=== PATIENT | male | born 1975 | race Caucasian/White ===

== ENCOUNTER 2017-10-15 07:14 | Emergency (ER) | payer MEDICARE, MEDICAID ==
[~2017-10-15] VITALS: Ht 175.3 cm; Wt 75.0 kg
[~2017-10-15 07:14] MED LIST: ACET-71; CLOB15CR11; CLON-527 PO; CLON-528 PO; DIPH-915 PO; LAMO200T2 PO; PARO25TA16 PO; QUET-1 PO; [UNRECOGNIZED DRUG - CODE] PO
[2017-10-15] MEDS ORDERED: LORazepam 2 mg/ml vial IV ONE (07:25)
[2017-10-15] MEDS ORDERED: normal saline 1000ML IV soln IVB ONE ×2 (07:25→08:50)
[2017-10-15 08:30] LABS: BASOPHILS % (AUTO) 0.2 % (0-1); EOSINOPHILS # (AUTO) 0.1 X10'3 (0-0.9); EOSINOPHILS % (AUTO) 1.3 % (0-6); HEMATOCRIT 39.8 % (42.0-52.0); HEMOGLOBIN 13.8 g/dl (14.0-17.9); LYMPHOCYTES # (AUTO) 0.8 X10'3 (1.1-4.8); LYMPHOCYTES % (AUTO) 9.9 % (21-51); MEAN CORPUSCULAR HEMOGLOBIN 33.6 PG (27.0-31.0); MEAN CORPUSCULAR HGB CONC 34.8 % (33.0-36.5); MEAN CORPUSCULAR VOLUME 96.6 FL (78-98); MEAN PLATELET VOLUME 8.1 FL (7.4-10.4); MONOCYTES # (AUTO) 0.4 X10'3 (0-0.9); MONOCYTES % (AUTO) 5.5 % (2-12); NEUTROPHILS # (AUTO) 6.4 X10'3 (1.8-7.7); NEUTROPHILS % (AUTO) 83.1 % (42-75); PLATELET COUNT 160 X10'3 (140-440); RED BLOOD COUNT 4.12 X10'6 (4.70-6.10); RED CELL DISTRIBUTION WIDTH 13.6 % (11.5-14.5); WHITE BLOOD COUNT 7.7 X10'3 (4.5-11.0)
[2017-10-15] MEDS ORDERED: lamoTRIgine 100mg tablet PO ONE ×3 (08:40→12:10)
[2017-10-15 08:41] LABS: ALANINE AMINOTRANSFERASE 20 U/L (12-78); ALBUMIN 3.8 G/DL (3.4-5.0); ALBUMIN/GLOBULIN RATIO 1.2 (1.1-1.5); ALKALINE PHOSPHATASE 77 IU/L (46-116); ANION GAP 9 (8-16); ASPARTATE AMINO TRANSFERASE 25 U/L (10-37); BILIRUBIN,TOTAL 0.3 MG/DL (0.1-1.0); BLOOD UREA NITROGEN 19 MG/DL (7-18); CALCIUM 8.9 MG/DL (8.5-10.1); CHLORIDE 101 MMOL/L (99-107); CREATININE 1.46 MG/DL (0.60-1.10); GLUCOSE 104 MG/DL (70-104); MAGNESIUM 2.3 MG/DL (1.5-2.4); SODIUM 141 MMOL/L (135-145); TOTAL CARBON DIOXIDE 31.1 MMOL/L (24-32); TOTAL PROTEIN 7.1 G/DL (6.4-8.2); eGFR 53 ML/MIN
[2017-10-15 09:45] LABS: PROTHROMBIN TIME 10.4 SECONDS (9.0-12.0)
[2017-10-15 10:09] LABS: PARTIAL THROMBOPLASTIN TIME 25 SECONDS (22-32)
[2017-10-15 11:18] VITALS: BP 98/56
== END 2017-10-15 12:38 | disposition home or self-care (01) ==
LOC: ER 07:15
DX: R56.9 Unspecified convulsions (principal); E86.0 Dehydration; Z88.8 Allergy status to other drugs, medicaments and biological substances
CPT/HCPCS: 36415; 71045; 74176; 80053; 82948; 83605; 83735; 85025; 85610; 85730; 87040; 96361; 96374; 99285; J2060; J7030

== ENCOUNTER 2017-11-26 13:45 | Emergency (ER) | payer MEDICARE, MEDICAID ==
[~2017-11-26] VITALS: Ht 188 cm; Wt 81.8 kg
[~2017-11-26 13:45] MED LIST changes: +RISP0.5T50 PO; -[UNRECOGNIZED DRUG - CODE] PO
[2017-11-26] MEDS ORDERED: lamoTRIgine 100mg tablet PO ONE (14:15)
[2017-11-26] MEDS ORDERED: LORazepam 1 MG tablet PO ONE (14:20)
[2017-11-26 16:37] VITALS: BP 116/86
== END 2017-11-26 16:39 | disposition home or self-care (01) ==
LOC: ER 13:48
DX: G40.909 Epilepsy, unspecified, not intractable, without status epilepticus (principal); Z88.8 Allergy status to other drugs, medicaments and biological substances; Z79.899 Other long term (current) drug therapy
CPT/HCPCS: 99283

== ENCOUNTER 2018-02-20 18:22 | Inpatient (IN) | payer MEDICARE, MEDICAID ==
[~2018-02-20] VITALS: Ht 180.3 cm; Wt 100.0 kg
[~2018-02-20 18:22] MED LIST changes: -CLOB15CR11; +CLOB15CR11 TOP; +etomidate 2mg/ml inj. ONE; +rocuronium 10mg/ml inj IV ONE
[2018-02-20] MEDS ORDERED: rocuronium 10mg/ml inj IV ONE (18:40)
[2018-02-20] MEDS ORDERED: etomidate 2mg/ml inj. IV ONE (18:40)
[2018-02-20] MEDS ORDERED: normal saline 1000ML IV soln IVB ONE (18:40)
[2018-02-20] MEDS ORDERED: MIDAZolam 5mg/ml 2ml vial IV ONE ×2 (18:40→19:45)
[2018-02-20] MEDS ORDERED: fentaNYL/PF 50MCG/1 ML 2ML syringe IV ONE (18:40)
[2018-02-20] MEDS ORDERED: propofol 1000mg/100ml bottle 100 ML IV ONE (18:40)
[2018-02-20] MEDS ORDERED: midazolam 100mg in NS 100ml 100 ML IV PRN (18:50)
[2018-02-20 19:00] LABS: BASOPHILS % (AUTO) 0 % (0-1); EOSINOPHILS % (AUTO) 0 % (0-6); HEMATOCRIT 41.6 % (42.0-52.0); HEMOGLOBIN 14.3 g/dl (14.0-17.9); LYMPHOCYTES # (AUTO) 0.6 X10'3 (1.1-4.8); LYMPHOCYTES % (AUTO) 6.8 % (21-51); MEAN CORPUSCULAR HEMOGLOBIN 32.9 PG (27.0-31.0); MEAN CORPUSCULAR HGB CONC 34.4 % (33.0-36.5); MEAN CORPUSCULAR VOLUME 95.5 FL (78-98); MEAN PLATELET VOLUME 8.5 FL (7.4-10.4); MONOCYTES # (AUTO) 0.3 X10'3 (0-0.9); MONOCYTES % (AUTO) 4.1 % (2-12); NEUTROPHILS # (AUTO) 7.2 X10'3 (1.8-7.7); NEUTROPHILS % (AUTO) 89.1 % (42-75); PLATELET COUNT 156 X10'3 (140-440); RED BLOOD COUNT 4.35 X10'6 (4.70-6.10); WHITE BLOOD COUNT 8.1 X10'3 (4.5-11.0)
[2018-02-20 19:04] LABS: ALANINE AMINOTRANSFERASE 19 U/L (12-78); ALBUMIN/GLOBULIN RATIO 1.1 (1.1-1.5); ALKALINE PHOSPHATASE 88 IU/L (46-116); ANION GAP 22 (8-16); ASPARTATE AMINO TRANSFERASE 26 U/L (10-37); BILIRUBIN,TOTAL 0.1 MG/DL (0.1-1.0); BLOOD UREA NITROGEN 16 MG/DL (7-18); BUN/CREATININE RATIO 8.7 (5.4-32.0); CALCIUM 8.9 MG/DL (8.5-10.1); CHLORIDE 102 MMOL/L (99-107); CREATININE 1.83 MG/DL (0.60-1.10); GLUCOSE 96 MG/DL (70-104); POTASSIUM 4.3 MMOL/L (3.5-5.1); SODIUM 143 MMOL/L (135-145); TOTAL CARBON DIOXIDE 19.1 MMOL/L (24-32); TOTAL PROTEIN 7.7 G/DL (6.4-8.2); eGFR 41 ML/MIN
[2018-02-20 19:14] LABS: CKMB RELATIVE INDEX 0.7 RATIO (0-2.5); CREATINE KINASE 200 U/L (39-308)
[2018-02-20 19:45] LABS: CLARITY,URINE CLEAR (Clear); COLOR,URINE YELLOW (Yellow); GLUCOSE, URINE NEGATIVE (Neg); KETONES,URINE NEGATIVE (Neg); LEUKOCYTE ESTERASE ,URINE NEGATIVE (Neg); NITRITES, URINE NEGATIVE (Neg); OCCULT BLOOD,URINE SMALL (Neg); PH,URINE 5.5 (4.8-8.0); PROTEIN,URINE TRACE mg/dl (Neg); UROBILINOGEN,URINE 0.2 E.U/dL (0.2-1.0)
[2018-02-20 19:50] LABS: UA COLLECTION TYPE FOLEY CATH
[2018-02-20 19:51] LABS: BACTERIA,URINE FEW /HPF (Neg); RBC,URINE 0-2 /HPF (0-2); SQUAMOUS EPITHELIAL CELL,UR FEW /LPF (FEW); WBC,URINE NONE SEEN /HPF (0-4)
[2018-02-20] MEDS ORDERED: LACO100T2 PO (19:55)
[2018-02-20] MEDS ORDERED: LAMO25TA94 PO (19:55)
[2018-02-20] MEDS ORDERED: ACET-2119 PO (19:55)
[2018-02-20] MEDS ORDERED: DOCU250C86 PO (19:55)
[2018-02-20] MEDS ORDERED: OLAN10TA3 PO (19:55)
[2018-02-20] MEDS ORDERED: OLAN10TA19 PO (19:55)
[2018-02-20] MEDS ORDERED: MAGN400O6 PO (19:55)
[2018-02-20] MEDS ORDERED: LORA10TA7 PO (19:55)
[2018-02-20] MEDS ORDERED: POLY17PO10 PO (19:55)
[2018-02-20] MEDS ORDERED: TRAZ-143 PO (19:55)
[2018-02-20] MEDS ORDERED: LURA40TA3 PO (19:55)
[2018-02-20 20:01] LABS: ABG BASE EXCESS 1.9 mmol/L (-2.0-3.0); ABG PH (T) 7.406 (7.350-7.450); ABG PO2 (T) 202.6 mmHg (83-108); ALLEN'S TEST Positive; FCOHb 0.2 % (0.5-1.5); FMetHb 0.3 % (0.3-1.12); FO2Hb 98.5 % (94-100); MINUTE VOLUME 7 L/min; PATIENT TEMPERATURE 37.2; PEEP 5 cm H2O; RESPIRATORY RATE 16 b/min; RESPIRATORY RATE (OBSERVED) 16 b/min; TIDAL VOLUME 400 mL; TOTAL HEMOGLOBIN 14.5 G/dl (14.0-18.0)
[2018-02-20] MEDS ORDERED: potassium Cl 40MEQ/250ML bag 250 ML IV PRN ×2 (20:20)
[2018-02-20] MEDS ORDERED: acetaminophen 325mg tablet PO PRN (20:20)
[2018-02-20] MEDS ORDERED: K, MAG and/or Phos replacement - Verify level? MC PRN (20:20)
[2018-02-20] MEDS ORDERED: magnesium hydroxide 30ml (MOM) UD suspension PO PRN (20:20)
[2018-02-20] MEDS ORDERED: ondansetron/PF 4mg/2ml inj IV PRN (20:20)
[2018-02-20] MEDS ORDERED: magnesium 4gm in 100ml NS 100 ML IV PRN (20:20)
[2018-02-20] MEDS ORDERED: magnesium 1gm/100ml D5W IVPB 50 ML IV PRN (20:20)
[2018-02-20] MEDS ORDERED: morphine 4 MG/ML inj SYRINge IV PRN ×2 (20:20)
[2018-02-20] MEDS ORDERED: FENTANYL-0.9 % NACL/PF 100 ML IV PRN (20:31)
[2018-02-20 21:30] VITALS: BP 116/65
[2018-02-20 22:00] VITALS: BP 112/62
[2018-02-20 23:00] VITALS: BP 111/72
[2018-02-21] VITALS (24 sets, daily range): BP systolic 81–132; BP diastolic 55–81
[2018-02-21] MEDS: midazolam 100mg in NS 100ml 100 ML IV PRN ×4 (00:56→21:38)
[2018-02-21 03:36] LABS: ABG BASE EXCESS 5.8 mmol/L (-2.0-3.0); ABG HCO3 30.4 mmol/L (22.0-26.0); ABG OXYGEN SATURATION 98.7 % (95-98); ABG PCO2 (T) 44.9 mmHg (35.0-48.0); ABG PO2 (T) 141.3 mmHg (83-108); ALLEN'S TEST Positive; FCOHb 0.3 % (0.5-1.5); FMetHb 0.3 % (0.3-1.12); FO2Hb 98.1 % (94-100); MINUTE VOLUME 9 L/min; PATIENT TEMPERATURE 37.3; PEEP 5 cm H2O; RESPIRATORY RATE 16 b/min; RESPIRATORY RATE (OBSERVED) 16 b/min; TIDAL VOLUME 400 mL; TOTAL HEMOGLOBIN 14.3 G/dl (14.0-18.0)
[2018-02-21 05:14] LABS: BASOPHILS % (AUTO) 0.3 % (0-1); EOSINOPHILS # (AUTO) 0.1 X10'3 (0-0.9); HEMATOCRIT 39.4 % (42.0-52.0); HEMOGLOBIN 13.5 g/dl (14.0-17.9); LYMPHOCYTES # (AUTO) 1.2 X10'3 (1.1-4.8); MEAN CORPUSCULAR HEMOGLOBIN 32.8 PG (27.0-31.0); MEAN CORPUSCULAR HGB CONC 34.3 % (33.0-36.5); MEAN CORPUSCULAR VOLUME 95.7 FL (78-98); MEAN PLATELET VOLUME 8.2 FL (7.4-10.4); MONOCYTES # (AUTO) 0.7 X10'3 (0-0.9); MONOCYTES % (AUTO) 10.1 % (2-12); NEUTROPHILS # (AUTO) 5.1 X10'3 (1.8-7.7); NEUTROPHILS % (AUTO) 71.6 % (42-75); PLATELET COUNT 128 X10'3 (140-440); RED BLOOD COUNT 4.12 X10'6 (4.70-6.10); RED CELL DISTRIBUTION WIDTH 12.9 % (11.5-14.5); WHITE BLOOD COUNT 7.2 X10'3 (4.5-11.0)
[2018-02-21 06:04] LABS: ALBUMIN 3.8 G/DL (3.4-5.0); ANION GAP 7 (8-16); BLOOD UREA NITROGEN 15 MG/DL (7-18); BUN/CREATININE RATIO 9.8 (5.4-32.0); CALCIUM 9.2 MG/DL (8.5-10.1); CHLORIDE 106 MMOL/L (99-107); CREATININE 1.53 MG/DL (0.60-1.10); GLUCOSE 87 MG/DL (70-104); MAGNESIUM 2.4 MG/DL (1.5-2.4); POTASSIUM 3.3 MMOL/L (3.5-5.1); SODIUM 145 MMOL/L (135-145); TOTAL CARBON DIOXIDE 31.6 MMOL/L (24-32); eGFR 50 ML/MIN
[2018-02-21] MEDS: famotidine/PF 10 mg/ml inj IV SCH ×2 (08:16→20:27)
[2018-02-21] MEDS: heparin, porcine 5000 units/ml vial SQ SCH ×2 (08:18→20:28)
[2018-02-21] MEDS: acetaminophen 325mg tablet PO PRN (08:28)
[2018-02-21] MEDS ORDERED: potassium Cl oral solution 20 MEQ/15 ML PO PRN ×2 (09:35)
[2018-02-21] MEDS: sodium chloride 0.45% 1,000 ML IV SCH ×2 (09:46→17:09)
[2018-02-21 10:59] LABS: CLARITY,URINE CLOUDY (Clear); COLOR,URINE YELLOW (Yellow); GLUCOSE, URINE NEGATIVE (Neg); KETONES,URINE NEGATIVE (Neg); LEUKOCYTE ESTERASE ,URINE TRACE (Neg); NITRITES, URINE NEGATIVE (Neg); OCCULT BLOOD,URINE LARGE (Neg); PROTEIN,URINE TRACE mg/dl (Neg); UROBILINOGEN,URINE 0.2 E.U/dL (0.2-1.0)
[2018-02-21 11:10] LABS: UA COLLECTION TYPE FOLEY CATH
[2018-02-21 11:13] LABS: BACTERIA,URINE FEW /HPF (Neg); HYALINE CASTS 0-3 /LPF (NEGATIVE); MUCUS STRANDS NONE SEEN /LPF (Neg); SQUAMOUS EPITHELIAL CELL,UR FEW /LPF (FEW); URIC ACID CRYSTALS 4+ /HPF (NEGATIVE); WBC,URINE 0-4 /HPF (0-4)
[2018-02-21 11:14] LABS: RBC,URINE 20-50 /HPF (0-2)
[2018-02-21] MEDS ORDERED: LORazepam 2 mg/ml vial IV PRN (12:05)
[2018-02-21] MEDS: clonazePAM 1mg tablet PO SCH ×2 (17:02→20:35)
[2018-02-21] MEDS: clobetasol 0.05% cream 30gm TP SCH (17:09)
[2018-02-21] MEDS: lurasidone 20mg tablet PO SCH (17:09)
[2018-02-21] MEDS: LACOSAMIDE 150 MG PO SCH (20:00)
[2018-02-21] MEDS: lamoTRIgine 100mg tablet PO SCH (20:27)
[2018-02-21] MEDS: traZODone 50mg tablet PO SCH (20:35)
[2018-02-22] VITALS (13 sets, daily range): BP systolic 85–134; BP diastolic 46–72
[2018-02-22] MEDS: sodium chloride 0.45% 1,000 ML IV SCH ×3 (00:42→17:39)
[2018-02-22] MEDS: mineral oil/petrolatum ophthal oint EACHEYE SCH ×2 (02:03→08:35)
[2018-02-22 04:04] LABS: BASOPHILS % (AUTO) 0.4 % (0-1); EOSINOPHILS % (AUTO) 0.3 % (0-6); HEMATOCRIT 38.9 % (42.0-52.0); HEMOGLOBIN 13.5 g/dl (14.0-17.9); LYMPHOCYTES % (AUTO) 9.5 % (21-51); MEAN CORPUSCULAR HEMOGLOBIN 33.2 PG (27.0-31.0); MEAN CORPUSCULAR HGB CONC 34.7 % (33.0-36.5); MEAN CORPUSCULAR VOLUME 95.5 FL (78-98); MEAN PLATELET VOLUME 8.4 FL (7.4-10.4); MONOCYTES # (AUTO) 0.7 X10'3 (0-0.9); MONOCYTES % (AUTO) 6.6 % (2-12); NEUTROPHILS # (AUTO) 8.8 X10'3 (1.8-7.7); NEUTROPHILS % (AUTO) 83.2 % (42-75); PLATELET COUNT 103 X10'3 (140-440); RED BLOOD COUNT 4.07 X10'6 (4.70-6.10); RED CELL DISTRIBUTION WIDTH 13.1 % (11.5-14.5); WHITE BLOOD COUNT 10.6 X10'3 (4.5-11.0)
[2018-02-22 04:17] LABS: ALBUMIN 3.4 G/DL (3.4-5.0); ANION GAP 7 (8-16); BLOOD UREA NITROGEN 15 MG/DL (7-18); BUN/CREATININE RATIO 10.2 (5.4-32.0); CALCIUM 8.9 MG/DL (8.5-10.1); CHLORIDE 106 MMOL/L (99-107); CREATININE 1.47 MG/DL (0.60-1.10); GLUCOSE 86 MG/DL (70-104); MAGNESIUM 2.1 MG/DL (1.5-2.4); PHOSPHORUS 2.8 MG/DL (2.3-4.5); POTASSIUM 3.8 MMOL/L (3.5-5.1); SODIUM 143 MMOL/L (135-145); TOTAL CARBON DIOXIDE 30.4 MMOL/L (24-32); eGFR 52 ML/MIN
[2018-02-22 05:06] LABS: ABG BASE EXCESS 2.1 mmol/L (-2.0-3.0); ABG HCO3 26.7 mmol/L (22.0-26.0); ABG OXYGEN SATURATION 92.8 % (95-98); ABG PCO2 (T) 43.1 mmHg (35.0-48.0); ABG PH (T) 7.414 (7.350-7.450); ABG PO2 (T) 68.7 mmHg (83-108); ALLEN'S TEST Positive; FCOHb 0.4 % (0.5-1.5); FMetHb 0.4 % (0.3-1.12); FO2Hb 92.1 % (94-100); MINUTE VOLUME 8 L/min; PATIENT TEMPERATURE 37.7; PEEP 5 cm H2O; RESPIRATORY RATE 16 b/min; RESPIRATORY RATE (OBSERVED) 16 b/min; TIDAL VOLUME 400 mL; TOTAL HEMOGLOBIN 13.5 G/dl (14.0-18.0)
[2018-02-22] MEDS: midazolam 100mg in NS 100ml 100 ML IV PRN (05:06)
[2018-02-22] MEDS: LACOSAMIDE 150 MG PO SCH ×2 (06:30→20:00)
[2018-02-22] MEDS: famotidine/PF 10 mg/ml inj IV SCH ×2 (06:32→20:49)
[2018-02-22] MEDS: heparin, porcine 5000 units/ml vial SQ SCH ×2 (06:32→20:00)
[2018-02-22] MEDS: lamoTRIgine 100mg tablet PO SCH ×2 (06:35→20:50)
[2018-02-22] MEDS: clonazePAM 1mg tablet PO SCH ×3 (06:36→20:51)
[2018-02-22] MEDS: lamoTRIgine 25mg tablet PO SCH (06:36)
[2018-02-22] MEDS: olanzapine 10mg tablet PO SCH ×2 (08:00→13:14)
[2018-02-22] MEDS: loratadine 10mg tablet PO SCH (08:34)
[2018-02-22] MEDS: PARoxetine 20mg tablet PO SCH (08:34)
[2018-02-22] MEDS: lurasidone 20mg tablet PO SCH ×2 (08:34→17:38)
[2018-02-22] MEDS: polyethylene glycol 3350 17gm powd pack PO SCH (08:34)
[2018-02-22] MEDS: acetaminophen 325mg tablet PO PRN (13:14)
[2018-02-22] MEDS: traZODone 50mg tablet PO SCH (20:52)
[2018-02-23 03:00] VITALS: BP 93/52
[2018-02-23] MEDS: sodium chloride 0.45% 1,000 ML IV SCH ×2 (03:30→09:30)
[2018-02-23 06:03] LABS: BASOPHILS % (AUTO) 0.2 % (0-1); EOSINOPHILS # (AUTO) 0.1 X10'3 (0-0.9); EOSINOPHILS % (AUTO) 1.2 % (0-6); HEMOGLOBIN 12.8 g/dl (14.0-17.9); LYMPHOCYTES # (AUTO) 1.3 X10'3 (1.1-4.8); LYMPHOCYTES % (AUTO) 16.6 % (21-51); MEAN CORPUSCULAR HEMOGLOBIN 32.8 PG (27.0-31.0); MEAN CORPUSCULAR HGB CONC 34.6 % (33.0-36.5); MEAN CORPUSCULAR VOLUME 94.8 FL (78-98); MEAN PLATELET VOLUME 8.2 FL (7.4-10.4); MONOCYTES # (AUTO) 0.6 X10'3 (0-0.9); MONOCYTES % (AUTO) 8.1 % (2-12); NEUTROPHILS # (AUTO) 5.8 X10'3 (1.8-7.7); NEUTROPHILS % (AUTO) 73.9 % (42-75); PLATELET COUNT 106 X10'3 (140-440); WHITE BLOOD COUNT 7.9 X10'3 (4.5-11.0)
[2018-02-23 06:17] LABS: ALBUMIN 2.8 G/DL (3.4-5.0); ANION GAP 7 (8-16); BLOOD UREA NITROGEN 12 MG/DL (7-18); BUN/CREATININE RATIO 9.4 (5.4-32.0); CALCIUM 8.3 MG/DL (8.5-10.1); CHLORIDE 104 MMOL/L (99-107); CREATININE 1.27 MG/DL (0.60-1.10); GLUCOSE 89 MG/DL (70-104); MAGNESIUM 1.8 MG/DL (1.5-2.4); PHOSPHORUS 2.6 MG/DL (2.3-4.5); POTASSIUM 3.7 MMOL/L (3.5-5.1); SODIUM 141 MMOL/L (135-145); TOTAL CARBON DIOXIDE 30.3 MMOL/L (24-32); eGFR 62 ML/MIN
[2018-02-23 06:45] VITALS: BP 100/76
[2018-02-23] MEDS: heparin, porcine 5000 units/ml vial SQ SCH ×2 (08:00→19:35)
[2018-02-23] MEDS: polyethylene glycol 3350 17gm powd pack PO SCH (08:00)
[2018-02-23] MEDS: LACOSAMIDE 150 MG PO SCH ×2 (08:00→19:34)
[2018-02-23] MEDS: famotidine/PF 10 mg/ml inj IV SCH (08:06)
[2018-02-23] MEDS: lamoTRIgine 25mg tablet PO SCH (08:09)
[2018-02-23] MEDS: lamoTRIgine 100mg tablet PO SCH ×2 (08:09→19:33)
[2018-02-23] MEDS: loratadine 10mg tablet PO SCH (08:09)
[2018-02-23] MEDS: clonazePAM 1mg tablet PO SCH ×3 (08:09→19:33)
[2018-02-23] MEDS: lurasidone 20mg tablet PO SCH ×2 (08:09→16:48)
[2018-02-23] MEDS: PARoxetine 20mg tablet PO SCH (08:09)
[2018-02-23] MEDS: olanzapine 10mg tablet PO SCH ×2 (08:09→12:29)
[2018-02-23 11:00] VITALS: BP 110/51
[2018-02-23] MEDS: levoFLOXACIN-Levaquin 750MG/D5 150 ML IV SCH (11:29)
[2018-02-23] MEDS: metroNIDAZOLE-Flagyl 500mg/NS 100 ML IV SCH ×3 (11:29→23:32)
[2018-02-23 15:00] VITALS: BP 160/96
[2018-02-23 19:00] VITALS: BP 147/76
[2018-02-23] MEDS: famotidine 20mg tablet PO SCH (19:33)
[2018-02-23] MEDS: clotrimazole topical cream 15gm tube TP SCH (19:33)
[2018-02-23] MEDS: traZODone 50mg tablet PO SCH (19:33)
[2018-02-23 23:00] VITALS: BP 99/58
[2018-02-24 03:00] VITALS: BP 94/47
[2018-02-24 05:50] LABS: ANION GAP 3 (8-16); BLOOD UREA NITROGEN 12 MG/DL (7-18); CHLORIDE 105 MMOL/L (99-107); CREATININE 1.33 MG/DL (0.60-1.10); GLUCOSE 98 MG/DL (70-104); POTASSIUM 3.8 MMOL/L (3.5-5.1); SODIUM 141 MMOL/L (135-145); TOTAL CARBON DIOXIDE 32.8 MMOL/L (24-32); eGFR 59 ML/MIN
[2018-02-24 06:37] VITALS: BP 91/47
[2018-02-24] MEDS: levoFLOXACIN-Levaquin 750MG/D5 150 ML IV SCH (07:55)
[2018-02-24] MEDS: metroNIDAZOLE-Flagyl 500mg/NS 100 ML IV SCH (07:55)
[2018-02-24] MEDS: polyethylene glycol 3350 17gm powd pack PO SCH (07:56)
[2018-02-24] MEDS: famotidine 20mg tablet PO SCH (07:56)
[2018-02-24] MEDS: lurasidone 20mg tablet PO SCH (07:56)
[2018-02-24] MEDS: clotrimazole topical cream 15gm tube TP SCH (07:57)
[2018-02-24] MEDS: clonazePAM 1mg tablet PO SCH (07:57)
[2018-02-24] MEDS: PARoxetine 20mg tablet PO SCH (07:57)
[2018-02-24] MEDS: lamoTRIgine 100mg tablet PO SCH (07:57)
[2018-02-24] MEDS: loratadine 10mg tablet PO SCH (07:57)
[2018-02-24] MEDS: olanzapine 10mg tablet PO SCH (07:57)
[2018-02-24] MEDS: lamoTRIgine 25mg tablet PO SCH (07:57)
[2018-02-24] MEDS: heparin, porcine 5000 units/ml vial SQ SCH (08:00)
[2018-02-24] MEDS: clobetasol 0.05% cream 30gm TP SCH (08:00)
[2018-02-24] MEDS: LACOSAMIDE 150 MG PO SCH (08:00)
[2018-02-24] MEDS ORDERED: Potassium Cl inj 20 MEQ in sodium chloride 0.45% 990 ML IV SCH (09:30)
[2018-02-24] MEDS ORDERED: METR500T4 PO (09:51)
[2018-02-24] MEDS ORDERED: LEVO750T21 PO (09:51)
[2018-02-24] MEDS ORDERED: CLOT30CR TP (09:56)
== END 2018-02-24 11:54 | disposition home or self-care (01) | DRG 208 ==
LOC: ER 18:22 → ED HOLD 20:17 → CICU 2S 21:36 → PCU 3S 02-22 17:57
PROVIDERS: ADMIT Internal Medicine Critical Care Medicine; ATTEND Internal Medicine
PROC: 5A1945Z Respiratory Ventilation, 24-96 Consecutive Hours (ICD-10-PCS; principal; 2018-02-20)
PROC: 0BH17EZ Insertion of Endotracheal Airway into Trachea, Via Natural or Artificial Opening (ICD-10-PCS; 2018-02-20)
PROC: 02HV33Z Insertion of Infusion Device into Superior Vena Cava, Percutaneous Approach (ICD-10-PCS; 2018-02-20)
PROC: B548ZZA Ultrasonography of Superior Vena Cava, Guidance (ICD-10-PCS; 2018-02-20)
DX: J69.0 Pneumonitis due to inhalation of food and vomit (principal); J96.90 Respiratory failure, unspecified, unspecified whether with hypoxia or hypercapnia; F84.0 Autistic disorder; N17.9 Acute kidney failure, unspecified; G40.901 Epilepsy, unspecified, not intractable, with status epilepticus; G80.9 Cerebral palsy, unspecified; L40.9 Psoriasis, unspecified; F42.9 Obsessive-compulsive disorder, unspecified; B36.0 Pityriasis versicolor; E86.0 Dehydration; F41.9 Anxiety disorder, unspecified; Z88.8 Allergy status to other drugs, medicaments and biological substances; Z79.899 Other long term (current) drug therapy
CPT/HCPCS: 36415; 36556; 36600; 70450; 71045; 80048; 80053; 81001; 82542; 82550; 82553; 82803; 82948; 83735; 84100; 84132; 85018; 85025; 87040; 87070; 87077; 87088; 87186; 92616; 93005; 94002; 94003; 94760; 96374; 96375; 97110; 97161; 99291; A4353; A4620; A6213; A6449; C1751; C1758; J1644; J1956; J2250; J3010; J3480; J3490; J7030

== ENCOUNTER → 2018-05-21 | Emergency (ER) | payer MEDICARE, MEDICAID ==
[~2018-05-21] VITALS: Ht 190.5 cm; Wt 77.0 kg
[~2018-05-21] MED LIST changes: +ACET-2119 PO; -ACET-71; -CLON-528 PO; +CLOT30CR TP; -DIPH-915 PO; +DOCU250C86 PO; +LACO100T2 PO; +LAMO25TA94 PO; +LORA10TA7 PO; +LURA40TA3 PO; +POLY17PO10 PO; -QUET-1 PO; -RISP0.5T50 PO; +TRAZ-218 PO; -etomidate 2mg/ml inj. ONE; -rocuronium 10mg/ml inj IV ONE
[2018-05-21 11:07] VITALS: BP 120/70
== END | disposition home or self-care (01) ==
LOC: ER 08:28
DX: G40.909 Epilepsy, unspecified, not intractable, without status epilepticus (principal); Z86.69 Personal history of other diseases of the nervous system and sense organs; Z79.899 Other long term (current) drug therapy; Z88.8 Allergy status to other drugs, medicaments and biological substances
CPT/HCPCS: 99284

== ENCOUNTER 2018-11-15 11:15 | Emergency (ER) | payer MEDICARE, MEDICAID ==
[~2018-11-15] VITALS: Ht 185.4 cm; Wt 68.0 kg
--- NOTE | 2018-11-15 11:45 | NUR ---
Flo albright in [facility], [place] - 11/15/18 at 1227 by MIRANDA ATTEMPTED TO CALL REPORT TO [facility] ON PC[facility]. NURSE NOT AVAILABLE AT THIS TIME AND WILL CALL BACK IN 10 MINUTES.
[2018-11-15] MEDS ORDERED: LIDOcaine 1% w/epiNEPHrine 1:200,000 30ml vial IM ONE (11:55)
[2018-11-15] MEDS ORDERED: TETanus/Pertussis (Acell)/Diphther VAC/PF (Tdap-Adult) 0.5ml syringe IM ONE (11:55)
[2018-11-15 12:22] VITALS: BP 125/82
--- NOTE | 2018-11-15 12:24 | NUR ---
Flo albright in [facility] - 11/15/18 at 1227 by MIRANDA PATIENT LEFT FOR IR PER HOSPITAL BED, IN STABLE CONDITION.
== END 2018-11-15 12:27 | disposition home or self-care (01) ==
LOC: ER 11:15
DX: S01.81XA Laceration without foreign body of other part of head, initial encounter (principal); G80.8 Other cerebral palsy; Z88.8 Allergy status to other drugs, medicaments and biological substances; Z79.899 Other long term (current) drug therapy; W22.8XXA Striking against or struck by other objects, initial encounter; Y93.01 Activity, walking, marching and hiking; Y92.89 Other specified places as the place of occurrence of the external cause; Y99.8 Other external cause status
CPT/HCPCS: 12011; 90471; 90715; 99284

== ENCOUNTER 2019-09-25 20:33 | Emergency (ER) | payer MEDICARE, MEDICAID ==
[~2019-09-25] VITALS: Ht 190.5 cm; Wt 66.0 kg
[~2019-09-25 20:33] MED LIST changes: -TRAZ-218 PO; +TRAZ-251 PO
--- NOTE | 2019-09-25 21:01 | NUR ---
CONTACTED POISON CONTROL...UNLIKELY TO HAVE ANAPHYLACTIC REACTION, OBSERVE FOR 6 HOURS FROM TIME OF INGESTION FOR LOW BP, SOB, OBTAIN BASELINE LFTS
--- NOTE | 2019-09-25 21:25 | NUR ---
Dr Scales made aware of patient's blood pressure of 81/30. Received verbal order for 1L of NS IV.
[2019-09-25] MEDS: normal saline 1000ml 1,000 ML IV SCH ×3 (21:41→23:27)
[2019-09-25 22:36] LABS: BASOPHILS # (AUTO) 0.1 X10'3 (0-0.2); BASOPHILS % (AUTO) 1.5 % (0-1); EOSINOPHILS # (AUTO) 0.2 X10'3 (0-0.9); EOSINOPHILS % (AUTO) 4.2 % (0-6); HEMATOCRIT 34.7 % (42.0-52.0); HEMOGLOBIN 12.1 g/dl (14.0-17.9); LYMPHOCYTES # (AUTO) 1.6 X10'3 (1.1-4.8); LYMPHOCYTES % (AUTO) 34.8 % (21-51); MEAN CORPUSCULAR HEMOGLOBIN 33.5 PG (27.0-31.0); MEAN CORPUSCULAR HGB CONC 34.8 g/dL (33.0-36.5); MEAN CORPUSCULAR VOLUME 96.5 FL (78-98); MEAN PLATELET VOLUME 8.1 FL (7.4-10.4); MONOCYTES # (AUTO) 0.4 X10'3 (0-0.9); MONOCYTES % (AUTO) 9.4 % (2-12); NEUTROPHILS # (AUTO) 2.3 X10'3 (1.8-7.7); NEUTROPHILS % (AUTO) 50.1 % (42-75); PLATELET COUNT 163 X10'3 (140-440); RED BLOOD COUNT 3.59 X10'6 (4.70-6.10); RED CELL DISTRIBUTION WIDTH 13.4 % (11.5-14.5); WHITE BLOOD COUNT 4.6 X10'3 (4.5-11.0)
[2019-09-25 22:47] LABS: ALANINE AMINOTRANSFERASE 27 U/L (12-78); ALBUMIN 3.3 G/DL (3.4-5.0); ALBUMIN/GLOBULIN RATIO 1.1 (1.1-1.5); ALKALINE PHOSPHATASE 89 IU/L (46-116); ANION GAP 3 (8-16); ASPARTATE AMINO TRANSFERASE 28 U/L (10-37); BILIRUBIN,TOTAL 0.2 MG/DL (0.1-1.0); BLOOD UREA NITROGEN 20 MG/DL (7-18); BUN/CREATININE RATIO 21.1 (5.4-32.0); CALCIUM 9.1 MG/DL (8.5-10.1); CHLORIDE 105 MMOL/L (99-107); CREATININE 0.95 MG/DL (0.60-1.10); GLUCOSE 93 MG/DL (70-104); POTASSIUM 4.1 MMOL/L (3.5-5.1); SODIUM 143 MMOL/L (135-145); TOTAL CARBON DIOXIDE 34.8 MMOL/L (24-32); TOTAL PROTEIN 6.4 G/DL (6.4-8.2); eGFR 86 ML/MIN
[2019-09-25 22:56] LABS: ETHANOL < 0.010 GM/DL (0.0-0.010)
[2019-09-26 00:14] LABS: URINE AMPHETAMINE SCREEN NEGATIVE (Neg); URINE BARBITUATE SCREEN NEGATIVE (Neg); URINE BENZODIAZEPINES SCREEN NEGATIVE (Neg); URINE CANNABINOID SCREEN NEGATIVE (Neg); URINE COCAINE SCREEN NEGATIVE (Neg); URINE METHADONE SCREEN NEGATIVE (Neg); URINE OPIATE SCREEN NEGATIVE (Neg); URINE PHENCYCLIDINE SCREEN NEGATIVE (Neg)
[2019-09-26] MEDS: normal saline 1000ml 1,000 ML IV SCH ×3 (00:33→02:23)
[2019-09-26 02:24] VITALS: BP 90/47
== END 2019-09-26 03:07 | disposition home or self-care (01) ==
LOC: ER 20:33
DX: T43.591A Poisoning by other antipsychotics and neuroleptics, accidental (unintentional), initial encounter (principal); T42.1X1A Poisoning by iminostilbenes, accidental (unintentional), initial encounter; T37.0X1A Poisoning by sulfonamides, accidental (unintentional), initial encounter; I95.9 Hypotension, unspecified; F17.200 Nicotine dependence, unspecified, uncomplicated; F41.9 Anxiety disorder, unspecified; Z88.8 Allergy status to other drugs, medicaments and biological substances; Z79.899 Other long term (current) drug therapy; Y92.89 Other specified places as the place of occurrence of the external cause
CPT/HCPCS: 36415; 80053; 80305; 80320; 84443; 85025; 96360; 96361; 99283; J7030

== ENCOUNTER 2020-02-12 10:11 | Emergency (ER) | payer MEDICARE, MEDICAID ==
[~2020-02-12] VITALS: Ht 188 cm; Wt 66.0 kg
[~2020-02-12 10:11] MED LIST changes: -CLOT30CR TP; +CLOT30CR19 TP; +DOCU250C31 PO; -DOCU250C86 PO
[2020-02-12 10:16] VITALS: BP 86/60
[2020-02-12] MEDS ORDERED: TETanus/Pertussis (Acell)/Diphther VAC/PF (Tdap-Adult) 0.5ml syringe IMVAC ONE (10:35)
== END 2020-02-12 12:19 | disposition home or self-care (01) ==
LOC: ER 10:12
DX: S51.012A Laceration without foreign body of left elbow, initial encounter (principal); F41.9 Anxiety disorder, unspecified; Z86.69 Personal history of other diseases of the nervous system and sense organs; Z88.8 Allergy status to other drugs, medicaments and biological substances; Z79.899 Other long term (current) drug therapy; W01.0XXA Fall on same level from slipping, tripping and stumbling without subsequent striking against object, initial encounter; Y93.89 Activity, other specified; Y92.89 Other specified places as the place of occurrence of the external cause; Y99.8 Other external cause status
CPT/HCPCS: 73080; 90471; 90715; 99283

== ENCOUNTER 2020-02-15 21:24 | Emergency (ER) | payer MEDICARE, MEDICAID ==
[~2020-02-15] VITALS: Ht 190.5 cm; Wt 80.9 kg
[2020-02-15] MEDS ORDERED: CefTRIAXone 1000mg IM Kit (w/lidocaine diluent) IM ONE (22:25)
[2020-02-15] MEDS ORDERED: CEPH-572 PO (22:27)
[2020-02-15 22:48] VITALS: BP 134/68
== END 2020-02-15 22:52 | disposition home or self-care (01) ==
LOC: ER 21:25
DX: L03.114 Cellulitis of left upper limb (principal); F41.9 Anxiety disorder, unspecified; Z86.69 Personal history of other diseases of the nervous system and sense organs; Z88.8 Allergy status to other drugs, medicaments and biological substances; Z79.899 Other long term (current) drug therapy
CPT/HCPCS: 96372; 99283; J0696

== ENCOUNTER 2020-02-18 11:38 | Emergency (ER) | payer MEDICARE, MEDICAID ==
[~2020-02-18] VITALS: Ht 190.5 cm; Wt 65.0 kg
[~2020-02-18 11:38] MED LIST changes: +CEPH-572 PO
[2020-02-18 11:48] VITALS: BP 102/63
[2020-02-18] MEDS ORDERED: BACDS PO (13:44)
--- NOTE | 2020-02-18 13:45 | NUR ---
pt seen, treated, and dc'd by sherrie brown. no orders. family at bedside to assist pt.
== END 2020-02-18 13:51 | disposition home or self-care (01) ==
LOC: ER 11:39
DX: L03.114 Cellulitis of left upper limb (principal); F41.9 Anxiety disorder, unspecified; R50.9 Fever, unspecified; Z86.69 Personal history of other diseases of the nervous system and sense organs; Z88.8 Allergy status to other drugs, medicaments and biological substances; Z79.899 Other long term (current) drug therapy
CPT/HCPCS: 99283

== ENCOUNTER 2020-02-21 09:53 | Outpatient (CLI) | payer MEDICARE, MEDICAID ==
[~2020-02-21 09:53] MED LIST changes: +BACDS PO
== END 2020-02-21 11:05 | disposition home or self-care (01) ==
LOC: WOUND CARE 09:53
PROVIDERS: ATTEND Nurse Practitioner Family
DX: S50.312A Abrasion of left elbow, initial encounter (principal); L98.491 Non-pressure chronic ulcer of skin of other sites limited to breakdown of skin; L40.9 Psoriasis, unspecified; R56.9 Unspecified convulsions; F41.9 Anxiety disorder, unspecified; F32.9 Major depressive disorder, single episode, unspecified; Z79.899 Other long term (current) drug therapy; Z86.69 Personal history of other diseases of the nervous system and sense organs; X58.XXXA Exposure to other specified factors, initial encounter; Y93.89 Activity, other specified; Y92.89 Other specified places as the place of occurrence of the external cause; Y99.8 Other external cause status
CPT/HCPCS: G0463

== ENCOUNTER 2020-02-28 11:00 | Outpatient (CLI) | payer MEDICARE, MEDICAID | END 2020-02-28 11:12 | disposition home or self-care (01) | LOC: EDSTATUS 11:00 → WOUND CARE 11:00 | PROVIDERS: ATTEND Nurse Practitioner Family | DX: S50.312D Abrasion of left elbow, subsequent encounter (principal); L98.491 Non-pressure chronic ulcer of skin of other sites limited to breakdown of skin; L40.9 Psoriasis, unspecified; R56.9 Unspecified convulsions; F41.9 Anxiety disorder, unspecified; F32.9 Major depressive disorder, single episode, unspecified; Z79.899 Other long term (current) drug therapy; Z86.69 Personal history of other diseases of the nervous system and sense organs; X58.XXXD Exposure to other specified factors, subsequent encounter | CPT/HCPCS: G0463 ==

== ENCOUNTER 2022-10-25 13:56 | Inpatient (IN) | payer MEDICARE, MEDICAID ==
[~2022-10-25] VITALS: Ht 182.9 cm; Wt 72.3 kg
[~2022-10-25 13:56] MED LIST changes: -BACDS PO; +DOCU-361 PO; -DOCU250C31 PO; +LURA40TA2 PO; -LURA40TA3 PO; -PARO25TA16 PO; +PARO25TA22 PO
[2022-10-25 14:35] LABS: BASOPHILS % (AUTO) 0.2 % (0-1); EOSINOPHILS % (AUTO) 0 % (0-6); HEMATOCRIT 34.3 % (42.0-52.0); HEMOGLOBIN 11.8 g/dl (14.0-17.9); LYMPHOCYTES # (AUTO) 0.7 X10'3 (1.1-4.8); MEAN CORPUSCULAR HEMOGLOBIN 32.5 PG (27.0-31.0); MEAN CORPUSCULAR HGB CONC 34.4 g/dL (33.0-36.5); MEAN CORPUSCULAR VOLUME 94.4 FL (78-98); MEAN PLATELET VOLUME 7.3 FL (7.4-10.4); MONOCYTES # (AUTO) 0.5 X10'3 (0-0.9); NEUTROPHILS # (AUTO) 8.7 X10'3 (1.8-7.7); NEUTROPHILS % (AUTO) 87.8 % (42-75); PLATELET COUNT 124 X10'3 (140-440); RED BLOOD COUNT 3.63 X10'6 (4.70-6.10); RED CELL DISTRIBUTION WIDTH 13.9 % (11.5-14.5); WHITE BLOOD COUNT 9.9 X10'3 (4.5-11.0)
[2022-10-25 14:52] LABS: ALANINE AMINOTRANSFERASE 41 U/L (12-78); ALBUMIN 3.4 G/DL (3.4-5.0); ALKALINE PHOSPHATASE 70 IU/L (46-116); ANION GAP 5 (8-16); ASPARTATE AMINO TRANSFERASE 42 U/L (10-37); BILIRUBIN,TOTAL 0.5 MG/DL (0.1-1.0); BLOOD UREA NITROGEN 16 MG/DL (7-18); BUN/CREATININE RATIO 12.8 (5.4-32.0); CALCIUM 8.4 MG/DL (8.5-10.1); CHLORIDE 97 MMOL/L (99-107); CREATININE 1.25 MG/DL (0.60-1.10); GLUCOSE 102 MG/DL (70-104); POTASSIUM 3.6 MMOL/L (3.5-5.1); SODIUM 133 MMOL/L (135-145); TOTAL PROTEIN 6.9 G/DL (6.4-8.2); eGFR 62 ML/MIN
[2022-10-25 15:50] LABS: CLARITY,URINE CLEAR (Clear); COLOR,URINE YELLOW (Yellow); GLUCOSE, URINE NEGATIVE (Neg); KETONES,URINE NEGATIVE (Neg); LEUKOCYTE ESTERASE ,URINE NEGATIVE (Neg); NITRITES, URINE NEGATIVE (Neg); OCCULT BLOOD,URINE TRACE-INTACT (Neg); PH,URINE 6.5 (4.8-8.0); PROTEIN,URINE TRACE mg/dl (Neg)
[2022-10-25 16:04] LABS: UA COLLECTION TYPE CLN CATCH MIDSTREAM
[2022-10-25 16:06] LABS: SQUAMOUS EPITHELIAL CELL,UR FEW /LPF (FEW)
[2022-10-25 16:15] LABS: BACTERIA,URINE FEW /HPF (Neg); RBC,URINE 0-2 /HPF (0-2); WBC,URINE 0-4 /HPF (0-4)
[2022-10-25] MEDS ORDERED: acetaminophen 325mg tablet PO PRN ×2 (17:20→18:20)
[2022-10-25] MEDS ORDERED: potassium Cl 40MEQ/1/2NS 520ml 520 ML IV PRN (17:20)
[2022-10-25] MEDS ORDERED: magnesium Cl slow-release 64mg tablet PO PRN (17:20)
[2022-10-25] MEDS ORDERED: mag hydrox/Alum hydrox/simeth 30ml oral suspension PO PRN (17:20)
[2022-10-25] MEDS ORDERED: ondansetron/PF 4mg/2ml inj IV PRN (17:20)
[2022-10-25] MEDS ORDERED: magnesium 4gm in 100ml NS 100 ML IV PRN (17:20)
[2022-10-25] MEDS ORDERED: magnesium hydroxide 30ml (MOM) UD suspension PO PRN (17:20)
[2022-10-25] MEDS ORDERED: potassium Cl 20 mEq SR tablet PO PRN ×2 (17:20)
[2022-10-25] MEDS ORDERED: OLAN10TA73 PO (17:26)
[2022-10-25] MEDS ORDERED: BUSP5TAB3 PO (17:26)
[2022-10-25] MEDS ORDERED: LACO200T2 PO (17:26)
[2022-10-25] MEDS ORDERED: OLAN5TAB29 PO ×2 (17:26)
[2022-10-25] MEDS ORDERED: LUBI24CA5 PO (17:26)
[2022-10-25] MEDS ORDERED: LAMO25TA5 PO (17:26)
[2022-10-25] MEDS ORDERED: [UNRECOGNIZED DRUG - CODE] PO (17:26)
[2022-10-25] MEDS ORDERED: ACET325T57 PO (17:26)
[2022-10-25] MEDS ORDERED: LORA10TA7 PO (17:26)
[2022-10-25] MEDS ORDERED: MAGN296S89 PO (17:26)
[2022-10-25] MEDS ORDERED: LEVE500T PO (17:26)
[2022-10-25] MEDS ORDERED: CLOB15OI3 TP (17:26)
[2022-10-25] MEDS ORDERED: PARO20TA6 PO (17:26)
[2022-10-25] MEDS ORDERED: PARO40TA4 PO (17:26)
[2022-10-25] MEDS ORDERED: LAMO200T10 PO (17:26)
[2022-10-25] MEDS ORDERED: TRAZ-251 PO (17:26)
[2022-10-25] MEDS: normal saline 1000ml 1,000 ML IV SCH ×2 (17:46→17:54)
[2022-10-25] MEDS: piperacillin/tazo 4.5gm/100ml 100 ML IV SCH ×2 (17:46→17:54)
[2022-10-25] MEDS ORDERED: OLANZapine 5mg rapidly disint. tablet PO PRN (18:20)
[2022-10-25] MEDS ORDERED: magnesium citrate 296ml oral solution PO PRN (18:20)
[2022-10-25 19:00] VITALS: BP 102/44
[2022-10-25] MEDS ORDERED: lubiprostone 24mcg capsule PO SCH (20:00)
[2022-10-25] MEDS: K and/or MAG REPLACEMENT MC SCH (20:00)
[2022-10-25] MEDS: albuterol 2.5 MG/3 ML nebule NEB SCH (20:02)
[2022-10-25] MEDS: lamoTRIgine 25mg tablet PO SCH (20:39)
[2022-10-25] MEDS: traZODone 50mg tablet PO SCH (20:39)
[2022-10-25] MEDS: lamoTRIgine 100mg tablet PO SCH (20:40)
[2022-10-25] MEDS: OLANZapine 5mg rapidly disint. tablet PO SCH (20:40)
[2022-10-25] MEDS: busPIRone 5mg tablet PO SCH (20:40)
[2022-10-25] MEDS: docusate sod 100mg capsule PO SCH (20:40)
[2022-10-25] MEDS: levetiracetam 250mg tablet PO SCH (20:40)
[2022-10-25] MEDS: clobetasol propionate ointment 15gm TP SCH (20:41)
[2022-10-25] MEDS: docusate sod 250mg capsule PO SCH (21:01)
[2022-10-25] MEDS: LACOSAMIDE 50 MG TABLET PO SCH (21:01)
[2022-10-25 22:00] VITALS: BP 92/45
[2022-10-26] MEDS: albuterol 2.5 MG/3 ML nebule NEB SCH ×3 (00:21→07:53)
[2022-10-26] MEDS: normal saline 1000ml 1,000 ML IV SCH ×2 (05:11→20:05)
--- NOTE | 2022-10-26 06:24 | NUR ---
Problems reprioritized. Patient report given, questions answered & plan of care reviewed with BEAU Keating.
[2022-10-26 06:43] VITALS: BP 91/51
--- NOTE | 2022-10-26 06:44 | NUR ---
Problems reprioritized. Patient report given, questions answered & plan of care reviewed with ALEXEI YANEZ.
[2022-10-26 07:22] LABS: BASOPHILS % (AUTO) 0.2 % (0-1); EOSINOPHILS % (AUTO) 0.6 % (0-6); HEMATOCRIT 33.4 % (42.0-52.0); HEMOGLOBIN 11.3 g/dl (14.0-17.9); LYMPHOCYTES # (AUTO) 0.6 X10'3 (1.1-4.8); LYMPHOCYTES % (AUTO) 12.4 % (21-51); MEAN CORPUSCULAR HEMOGLOBIN 32.3 PG (27.0-31.0); MEAN CORPUSCULAR HGB CONC 33.8 g/dL (33.0-36.5); MEAN CORPUSCULAR VOLUME 95.7 FL (78-98); MEAN PLATELET VOLUME 8.4 FL (7.4-10.4); MONOCYTES # (AUTO) 0.3 X10'3 (0-0.9); MONOCYTES % (AUTO) 6.7 % (2-12); NEUTROPHILS # (AUTO) 4.1 X10'3 (1.8-7.7); NEUTROPHILS % (AUTO) 80.1 % (42-75); PLATELET COUNT 110 X10'3 (140-440); RED BLOOD COUNT 3.49 X10'6 (4.70-6.10); RED CELL DISTRIBUTION WIDTH 13.6 % (11.5-14.5); WHITE BLOOD COUNT 5.1 X10'3 (4.5-11.0)
[2022-10-26 07:43] LABS: ANION GAP 7 (8-16); BLOOD UREA NITROGEN 10 MG/DL (7-18); BUN/CREATININE RATIO 11.1 (5.4-32.0); CALCIUM 8.3 MG/DL (8.5-10.1); CHLORIDE 104 MMOL/L (99-107); GLUCOSE 95 MG/DL (70-104); MAGNESIUM 2.1 MG/DL (1.5-2.4); POTASSIUM 3.6 MMOL/L (3.5-5.1); SODIUM 139 MMOL/L (135-145); TOTAL CARBON DIOXIDE 28.2 MMOL/L (24-32); eGFR 90 ML/MIN
[2022-10-26] MEDS ORDERED: non-formulary drug (Paroxetine HCl 1 TAB) PO SCH (08:00)
[2022-10-26] MEDS: K and/or MAG REPLACEMENT MC SCH ×2 (08:00→19:54)
[2022-10-26] MEDS: PARoxetine 20mg tablet PO SCH (08:25)
[2022-10-26] MEDS: docusate sod 100mg capsule PO SCH ×2 (08:26→20:03)
[2022-10-26] MEDS: piperacillin/tazo 4.5gm/100ml 100 ML IV SCH ×2 (08:26→16:09)
[2022-10-26] MEDS: olanzapine 10mg tablet PO SCH (08:26)
[2022-10-26] MEDS: lamoTRIgine 100mg tablet PO SCH ×2 (08:26→20:04)
[2022-10-26] MEDS: lamoTRIgine 25mg tablet PO SCH ×2 (08:26→20:04)
[2022-10-26] MEDS: busPIRone 5mg tablet PO SCH ×3 (08:26→20:23)
[2022-10-26] MEDS: levetiracetam 250mg tablet PO SCH ×2 (08:27→20:04)
[2022-10-26] MEDS: enoxaparin 40mg/0.4ml syringe SUBCUT SCH (08:27)
[2022-10-26] MEDS: loratadine 10mg tablet PO SCH (08:27)
[2022-10-26] MEDS: clobetasol propionate ointment 15gm TP SCH ×2 (09:11→20:23)
[2022-10-26] MEDS: LACOSAMIDE 50 MG TABLET PO SCH ×2 (09:26→20:22)
[2022-10-26] MEDS: lubiprostone 24mcg capsule PO SCH ×2 (09:26→20:03)
[2022-10-26] MEDS ORDERED: albuterol 2.5 MG/3 ML nebule NEB PRN (11:30)
[2022-10-26 12:00] VITALS: BP 96/60
[2022-10-26] MEDS: OLANZapine 5mg rapidly disint. tablet PO SCH ×2 (12:48→20:05)
--- NOTE | 2022-10-26 18:16 | NUR ---
Problems reprioritized. Patient report given, questions answered & plan of care reviewed with Tiffany YANEZ.
[2022-10-26] MEDS: docusate sod 250mg capsule PO SCH (20:04)
[2022-10-26] MEDS: traZODone 50mg tablet PO SCH (20:23)
[2022-10-26 22:00] VITALS: BP 121/79
[2022-10-27] MEDS: piperacillin/tazo 4.5gm/100ml 100 ML IV SCH ×2 (00:03→08:26)
[2022-10-27] MEDS: normal saline 1000ml 1,000 ML IV SCH (05:43)
--- NOTE | 2022-10-27 06:00 | NUR ---
Problems reprioritized. Patient report given, questions answered & plan of care reviewed with BEAU Keating.
--- NOTE | 2022-10-27 06:38 | NUR ---
Patient in room [facility]. I have received report from Tiffany YANEZ and had the opportunity to ask questions and assume patient care.
[2022-10-27 06:48] VITALS: BP 116/73
[2022-10-27 07:09] LABS: BASOPHILS % (AUTO) 0.8 % (0-1); EOSINOPHILS # (AUTO) 0.1 X10'3 (0-0.9); EOSINOPHILS % (AUTO) 3.5 % (0-6); HEMATOCRIT 34.1 % (42.0-52.0); HEMOGLOBIN 11.6 g/dl (14.0-17.9); LYMPHOCYTES # (AUTO) 0.7 X10'3 (1.1-4.8); LYMPHOCYTES % (AUTO) 22.8 % (21-51); MEAN CORPUSCULAR HEMOGLOBIN 32.3 PG (27.0-31.0); MONOCYTES # (AUTO) 0.4 X10'3 (0-0.9); MONOCYTES % (AUTO) 13.6 % (2-12); NEUTROPHILS # (AUTO) 1.8 X10'3 (1.8-7.7); NEUTROPHILS % (AUTO) 59.3 % (42-75); PLATELET COUNT 119 X10'3 (140-440); RED BLOOD COUNT 3.59 X10'6 (4.70-6.10); RED CELL DISTRIBUTION WIDTH 13.6 % (11.5-14.5)
[2022-10-27 07:17] LABS: ALBUMIN 3.3 G/DL (3.4-5.0); ANION GAP 6 (8-16); BLOOD UREA NITROGEN 10 MG/DL (7-18); CALCIUM 8.7 MG/DL (8.5-10.1); CHLORIDE 103 MMOL/L (99-107); CREATININE 0.83 MG/DL (0.60-1.10); GLUCOSE 96 MG/DL (70-104); MAGNESIUM 2.1 MG/DL (1.5-2.4); POTASSIUM 3.4 MMOL/L (3.5-5.1); SODIUM 138 MMOL/L (135-145); TOTAL CARBON DIOXIDE 29.4 MMOL/L (24-32); eGFR > 90 ML/MIN
[2022-10-27] MEDS: K and/or MAG REPLACEMENT MC SCH (07:31)
[2022-10-27 07:51] LABS: PLATELET ESTIMATE DECREASED; TOTAL CELLS COUNTED 100
[2022-10-27] MEDS: clobetasol propionate ointment 15gm TP SCH (08:00)
[2022-10-27] MEDS: loratadine 10mg tablet PO SCH (08:00)
[2022-10-27] MEDS: enoxaparin 40mg/0.4ml syringe SUBCUT SCH (08:26)
[2022-10-27] MEDS: busPIRone 5mg tablet PO SCH ×2 (08:27→12:27)
[2022-10-27] MEDS: lubiprostone 24mcg capsule PO SCH (08:27)
[2022-10-27] MEDS: levetiracetam 250mg tablet PO SCH (08:27)
[2022-10-27] MEDS: docusate sod 100mg capsule PO SCH (08:27)
[2022-10-27] MEDS: lamoTRIgine 100mg tablet PO SCH (08:28)
[2022-10-27] MEDS: PARoxetine 20mg tablet PO SCH (08:28)
[2022-10-27] MEDS: olanzapine 10mg tablet PO SCH (08:28)
[2022-10-27] MEDS: lamoTRIgine 25mg tablet PO SCH (08:28)
[2022-10-27] MEDS: LACOSAMIDE 50 MG TABLET PO SCH (09:35)
[2022-10-27] MEDS ORDERED: AMOX-117 PO (11:06)
[2022-10-27 11:12] VITALS: BP 99/56
[2022-10-27] MEDS: OLANZapine 5mg rapidly disint. tablet PO SCH (12:00)
--- NOTE | 2022-10-27 13:00 | NUR ---
Received D/C orders reviewed with Patient and caregiver, understanding verbalized. IV removed with cannula intact. Patient escorted to lobby with belongings and caregiver by staff.
== END 2022-10-27 12:45 | disposition home or self-care (01) | DRG 178 ==
LOC: ER 13:57 → ED HOLD 17:23 → SUR 3N 19:05
PROVIDERS: ADMIT Family Medicine; ATTEND Family Medicine
DX: J69.0 Pneumonitis due to inhalation of food and vomit (principal); E87.1 Hypo-osmolality and hyponatremia; Z20.822 Contact with and (suspected) exposure to COVID-19; G40.909 Epilepsy, unspecified, not intractable, without status epilepticus; G80.9 Cerebral palsy, unspecified; F41.9 Anxiety disorder, unspecified; Z88.8 Allergy status to other drugs, medicaments and biological substances; Z79.899 Other long term (current) drug therapy
CPT/HCPCS: 36415; 71045; 80048; 80053; 81001; 83605; 83735; 84145; 85007; 85025; 87040; 87081; 87635; 94640; 94664; 94760; 97116; 97161; 97530; 99285; C9803; G0378; J1650; J2543; J7030